=== PATIENT | female | born 1960 | race Caucasian/White ===

== ENCOUNTER 2018-06-01 09:54 | Emergency (ER) | payer BC ==
--- NOTE | 2018-06-01 10:18 | PDOC ---
History of Present Illness - General Chief Complaint: Urinary Problem Stated Complaint: UTI Time Seen by Provider: 06/01/18 10:05 - History of Present Illness Initial Comments: 06/01/18 10:30 58yo female with no pmhx presents for eval of dysuria and freq that started today. Pt denies f/c. C/o suprapubic discomfort. No cva or flank pain. No radiation of the pain. No n/v/d. No other complaints. States she has urinated 10x this am. Denies hematuria. No recent abx or travel. No other complaints. No cp/sob. No vaginal complaints. PMHx: denies PShx: c section Allergies: nkda Meds: mvi Past History - Past Medical History Allergies/Adverse Reactions: Allergies Allergy/AdvReac Type Severity Reaction Status Date / Time No Known Allergies Allergy Verified 06/01/18 09:57 Home Medications: Ambulatory Orders Cephalexin Monohydrate [Keflex -] 500 mg PO BID #10 capsule 06/01/18 Phenazopyridine HCl [Pyridium -] 100 mg PO TID PRN #6 tablet 06/01/18 Asthma: No HTN: No Hypercholesterolemia: No - Suicide/Smoking/Psychosocial Hx Smoking Status: No Smoking History: Never smoked Number of Cigarettes Smoked Daily: 0 Hx Alcohol Use: No Drug/Substance Use Hx: No Substance Use Type: None Review of Systems - Review of Systems Able to Perform ROS?: Yes Is the patient limited German proficient: No Constitutional: No: Chills, Fever HEENTM: Yes: Blurred Vision Respiratory: No: Cough, Shortness of Breath Cardiac (ROS): No: Chest Pain ABD/GI: No: Diarrhea, Nausea, Vomiting, Abdominal cramping : Yes: Burning, Dysuria. No: Hematuria Musculoskeletal: No: Back Pain Neurological: No: Headache All Other Systems: Reviewed and Negative *Physical Exam - Vital Signs 06/01/18 10:34 Selected Entries 06/01/18 09:57 Temperature 97.9 F Pulse Rate 77 Respiratory 15 Rate Blood Pressure 132/84 Blood Pressure 100 Mean O2 Sat by Pulse 100 Oximetry (%) Weight 68 kg - Physical Exam General Appearance: Yes: Nourished, Appropriately Dressed. No: Apparent Distress HEENT: positive: EOMI, Normal Voice Neck: positive: Supple Respiratory/Chest: positive: Lungs Clear, Normal Breath Sounds. negative: Respiratory Distress Cardiovascular: positive: Regular Rhythm, Regular Rate, S1, S2. negative: Edema Gastrointestinal/Abdominal: positive: Normal Bowel Sounds, Tender (suprapubic), Flat, Soft, Tenderness (suprapubic). negative: Guarding, Rebound Musculoskeletal: positive: Normal Inspection. negative: CVA Tenderness Extremity: positive: Normal Capillary Refill, Normal Inspection, Other (pedal pulses intact). negative: Calf Tenderness Integumentary: positive: Normal Color, Dry, Warm Neurologic: positive: Fully Oriented, Normal Mood/Affect, Motor Strength 5/5, Other (ambulatory in the ED with a steady gait) Medical Decision Making - Medical Decision Making 06/01/18 10:35 a/p: 58yo female with dysuria and frequency this AM -suspect UTI -will send ua and ucx -will give pyridium for spasm sensation -will most likely need abx - keflex -pending ua 06/01/18 11:15 pt with UTI on labs will give keflex, first dose in the ED and Rx for home will give Rx for pyridium 06/01/18 11:29 discussed lab results with the patient. Discussed all reasons to return to the ED and need for abx answered all questions. pt is stable for dc to home *DC/Admit/Observation/Transfer Diagnosis at time of Disposition: UTI (urinary tract infection) - Discharge Dispostion Disposition: HOME Condition at time of disposition: Stable Decision to Admit order: No - Prescriptions Prescriptions: Cephalexin Monohydrate [Keflex -] 500 mg PO BID #10 capsule Phenazopyridine HCl [Pyridium -] 100 mg PO TID PRN #6 tablet PRN Reason: Muscle Spasms - Referrals Referrals: Prabha Thompson [Primary Care Provider] - - Patient Instructions Printed Discharge Instructions: DI for Urinary Tract Infection (UTI) Additional Instructions: Please take all medications as prescribed. Please make a follow up appointment with your PMD in 2-3 days. Please return to the ED with any further concerns or complaints. If you develop a fever please return to the ED immediately. - Post Discharge Activity
[2018-06-01 10:20] VITALS: BP 132/84; PULSE 77; TEMP 97.9; BMI 24.2
[2018-06-01] MEDS ORDERED: PHENAZOPYRIDINE HCL 100 MG TABLET (FP) PO ONE (10:30)
[2018-06-01] MEDS ORDERED: PHENAZOPYRIDINE HCL 100 MG TABLET (FP) ONE (10:54)
[2018-06-01 11:09] LABS: URINE APPEARANCE Clear; URINE BILIRUBIN Negative (NEGATIVE); URINE COLOR Yellow; URINE GLUCOSE (UA) Negative (NEGATIVE); URINE KETONE Negative (NEGATIVE); URINE LEUK ESTERASE 2+ (NEGATIVE); URINE NITRITE Negative (NEGATIVE); URINE PROTEIN Negative (NEGATIVE); URINE UROBILINOGEN 0.2 (0.2-1.0)
[2018-06-01] MEDS ORDERED: CEPHALEXIN MONOHYDRATE 500 MG CAPSULE (UD) PO ONE (11:14)
[2018-06-01] MEDS ORDERED: CEPHALEXIN MONOHYDRATE 500 MG CAPSULE (UD) ONE (11:32)
[2018-06-01 11:46] LABS: EPI CELLS FEW /HPF
[2018-06-01 11:47] LABS: URINE BACTERIA FEW /hpf (NEGATIVE)
== END 2018-06-01 11:43 | disposition home or self-care (01) ==
LOC: SUPCPDRO 09:54 → FER 09:54
DX: N39.0 Urinary tract infection, site not specified (principal)
CPT/HCPCS: 81003; 81015; 87086; 99282-25

== ENCOUNTER 2019-01-04 07:57 | Emergency (ER) | payer BC ==
--- NOTE | 2019-01-04 08:07 | PDOC ---
History of Present Illness - General Chief Complaint: Urinary Problem Stated Complaint: "I THINK I HAVE UTI" Time Seen by Provider: 01/04/19 07:59 History Source: Patient Exam Limitations: No Limitations - History of Present Illness Initial Comments: 01/04/19 08:04 58 year old female c/ hx of UTIs presents with dysuria. Pt reports that symptoms are similar to her previous incident in May 2018. Denies fevers, chills. Started overnight. Stated that she noted the symptoms and suprapubic discomfort. Otherwise, denies other symptoms. Past History - Past Medical History Allergies/Adverse Reactions: Allergies Allergy/AdvReac Type Severity Reaction Status Date / Time No Known Allergies Allergy Verified 01/04/19 07:58 Home Medications: Ambulatory Orders Cephalexin Monohydrate [Keflex -] 500 mg PO BID #10 capsule 06/01/18 Phenazopyridine HCl [Pyridium -] 100 mg PO TID PRN #6 tablet 06/01/18 Cephalexin Monohydrate [Keflex -] 500 mg PO BID #10 capsule 01/04/19 Phenazopyridine HCl [Pyridium -] 100 mg PO TID PRN #6 tablet 01/04/19 Asthma: No COPD: No Disorders: Yes (UTI) HTN: No Hypercholesterolemia: No - Suicide/Smoking/Psychosocial Hx Smoking Status: No Smoking History: Never smoked Number of Cigarettes Smoked Daily: 0 Hx Alcohol Use: No Drug/Substance Use Hx: No Substance Use Type: None Review of Systems - Review of Systems Able to Perform ROS?: Yes Comments:: 01/04/19 08:04 GENERAL/CONSTITUTIONAL: [No fever or chills. No weakness. No weight change.] HEAD, EYES, EARS, NOSE AND THROAT: [No change in vision. No ear pain or discharge. No sore throat.] CARDIOVASCULAR: [No chest pain or shortness of breath.] RESPIRATORY: [No cough, wheezing, or hemoptysis.] GASTROINTESTINAL: [No nausea, vomiting, diarrhea or constipation. No rectal bleeding.] GENITOURINARY: [No frequency, or change in urination.] + dysuria MUSCULOSKELETAL: [No joint or muscle swelling or pain. No neck or back pain.] SKIN AND BREASTS: [No rash or easy bruising.] NEUROLOGIC: [No headache, vertigo, loss of consciousness, or loss of sensation.] PSYCHIATRIC: [No depression or anxiety.] ENDOCRINE: [No increased thirst. No abnormal weight change.] HEMATOLOGIC/LYMPHATIC: [No anemia, easy bleeding, or history of blood clots.] ALLERGIC/IMMUNOLOGIC: [No hives or skin allergy. No latex allergy.] *Physical Exam - Physical Exam Comments: 01/04/19 08:06 GENERAL: Awake, alert, and fully oriented, in no acute distress HEAD: No signs of trauma EYES: EOMI, sclera anicteric, conjunctiva clear ENT: Auricles normal inspection, hearing grossly normal, nares patent, Moist mucosa NECK: Normal ROM, supple, EXTREMITIES: Normal range of motion, no edema. No clubbing or cyanosis. No cords, erythema, or tenderness NEUROLOGICAL: Cranial nerves II through XII grossly intact. Normal speech, normal gait SKIN: Warm, Dry, normal turgor, no rashes or lesions noted. Medical Decision Making - Medical Decision Making 01/04/19 08:06 Vital Signs Temp Pulse Resp BP Pulse Ox 98 F 72 18 147/96 98 01/04/19 07:58 01/04/19 07:58 01/04/19 07:58 01/04/19 07:58 01/04/19 07:58 I will treat this patient as a urinary tract infection. Given improvement of symptoms utilizing cephalexin and Pyridium and her previous visit, we'll utilize his same medications. Obtain urine culture and have patient follow-up primary care physician. I discussed the physical exam findings, ancillary test results and final diagnoses with the patient. I answered all of the patient's questions. The patient was satisfied with the care received and felt comfortable with the discharge plan and treatment plan. The patient will call their primary care physician within 24 hours to arrange follow-up and will return to the Emergency Department with any new, persistant or worsening symptoms. *DC/Admit/Observation/Transfer Diagnosis at time of Disposition: UTI (urinary tract infection) Qualifiers: Urinary tract infection type: site unspecified Hematuria presence: without hematuria Qualified Code(s): N39.0 - Urinary tract infection, site not specified - Discharge Dispostion Condition at time of disposition: Stable Decision to Admit order: No - Prescriptions Prescriptions: Cephalexin Monohydrate [Keflex -] 500 mg PO BID #10 capsule Phenazopyridine HCl [Pyridium -] 100 mg PO TID PRN #6 tablet PRN Reason: UTI - Referrals - Patient Instructions Printed Discharge Instructions: DI for Urinary Tract Infection (UTI) Additional Instructions: Please take the antibiotics (500 mg keflex every 12 hours for 5 days). Please complete the course of medications. For pain relief, you may take 650 mg tylenol every 4 hours and/or 600 mg ibuprofen every 6 hours as needed. Drink plenty of fluids and rest. You may also take pyridium 100 mg every 8 hours (for a total max of 6 doses). Please follow up with your doctor. - Post Discharge Activity
[2019-01-04 08:12] VITALS: BP 147/96; PULSE 72; TEMP 98; BMI 24.2
[2019-01-04] MEDS ORDERED: NAPROXEN 500 MG TABLET (FP) PO ONE (08:12)
[2019-01-04] MEDS ORDERED: CEPHALEXIN 250 MG/5 ML ORAL SUSPENSION PO ONE (08:12)
[2019-01-04] MEDS ORDERED: CEPHALEXIN MONOHYDRATE 500 MG CAPSULE (UD) PO ONE (08:14)
[2019-01-04] MEDS ORDERED: CEPHALEXIN MONOHYDRATE 500 MG CAPSULE (UD) ONE (08:15)
[2019-01-04] MEDS ORDERED: NAPROXEN 500 MG TABLET (FP) ONE (08:15)
[2019-01-04 08:46] LABS: EPITHELIAL CELLS FEW /hpf
== END 2019-01-04 08:28 | disposition home or self-care (01) ==
LOC: FER 07:57
DX: N39.0 Urinary tract infection, site not specified (principal)
CPT/HCPCS: 81003; 81015; 87086; 87186; 99282-25

== ENCOUNTER 2020-02-01 08:36 | Emergency (ER) | payer BC ==
[2020-02-01 08:43] VITALS: BP 140/50; PULSE 76; TEMP 98.3; BMI 23.5
--- NOTE | 2020-02-01 08:55 | PDOC ---
History of Present Illness - General Chief Complaint: Rash Stated Complaint: RASH Time Seen by Provider: 02/01/20 08:38 - History of Present Illness Initial Comments: 02/01/20 09:06 59-year-old female with no significant past medical history presents the emergency department with rash. Patient reports she was cutting her hedges this weekend and noticed a rash on her right forearm. She reports some areas of the rash developed blisters and since then the rash has spread to her left forearm her chest, the back of her neck, and the back of her knees. She reports the rash is very itchy. She took Benadryl last night to assist with the itching with minimal relief. She presents today due to progression of the rash. She denies any fevers or chills. She has no history of rash. She is not sure if she had any poison taty in her yard. She is otherwise been in her usual state of good health, denies headache, dizziness, focal weakness or numbness, chest pain, shortness of breath, abdominal pain, urinary symptoms, lower extremity edema. Denies any recent travel. Denies recent new medications, detergents. Past History - Medical History Allergies/Adverse Reactions: Allergies Allergy/AdvReac Type Severity Reaction Status Date / Time No Known Allergies Allergy Verified 01/04/19 07:58 Home Medications: Ambulatory Orders Cephalexin Monohydrate [Keflex -] 500 mg PO BID #10 capsule 06/01/18 Phenazopyridine HCl [Pyridium -] 100 mg PO TID PRN #6 tablet 06/01/18 Cephalexin Monohydrate [Keflex -] 500 mg PO BID #10 capsule 01/04/19 Phenazopyridine HCl [Pyridium -] 100 mg PO TID PRN #6 tablet 01/04/19 Triamcinolone 0.5% Cream [Aristocort 0.5% Cream -] 1 applic TP BID 14 Days #1 tube 02/01/20 Triamcinolone 0.5% Cream [Aristocort 0.5% Cream -] 1 applic TP BID 14 Days #1 tube 02/01/20 Asthma: No COPD: No Disorders: Yes (UTI) HTN: No Hypercholesterolemia: No - Psycho-Social/Smoking History Smoking Status: No Smoking History: Never smoked Number of Cigarettes Smoked Daily: 0 - Substance Abuse Hx (Audit-C & DAST Scrn) How often the patient has a drink containing alcohol: Never Score: In Men: 4 or > Positive; In Women: 3 or > Positive: 0 Screen Result (Pos requires Nsg. Audit-10AR): Negative In the last yr the pt used illegal drug/Rx for NonMed reason: No Score: Yes response is considered Positive: 0 Screen Result (Positive result requires Nsg. DAST-10): Negative Review of Systems - Review of Systems Comments:: 02/01/20 09:08 GENERAL/CONSTITUTIONAL: No fever or chills. No weakness. HEAD, EYES, EARS, NOSE AND THROAT: No change in vision. No ear pain or discharge. No sore throat. GASTROINTESTINAL: No nausea, vomiting, diarrhea or constipation. GENITOURINARY: No dysuria, frequency, or change in urination. CARDIOVASCULAR: No chest pain or shortness of breath. RESPIRATORY: No cough, wheezing, or hemoptysis. MUSCULOSKELETAL: No joint or muscle swelling or pain. No neck or back pain. SKIN: +rash NEUROLOGIC: No headache, vertigo, loss of consciousness, or change in strength/sensation. ENDOCRINE: No increased thirst. No abnormal weight change. HEMATOLOGIC/LYMPHATIC: No anemia, easy bleeding, or history of blood clots. ALLERGIC/IMMUNOLOGIC: No hives or skin allergy. *Physical Exam - Vital Signs Last Vital Signs Temp Pulse Resp BP Pulse Ox 98.3 F 76 18 140/50 L 98 02/01/20 08:39 02/01/20 08:39 02/01/20 08:39 02/01/20 08:39 02/01/20 08:39 - Physical Exam 02/01/20 09:09 GENERAL: Awake, alert, and fully oriented, in no acute distress, non toxic EYES: PERRLA, EOMI, sclera anicteric, conjunctiva clear ENT: Oropharynx clear without exudates. Moist mucosa NECK: Normal ROM, supple, no lymphadenopathy, JVD, or masses LUNGS: Breath sounds equal, clear to auscultation bilaterally. No wheezes, and no crackles HEART: Regular rate and rhythm, normal S1 and S2, no murmurs, rubs or gallops ABDOMEN: Soft, nontender, normoactive bowel sounds. No guarding, no rebound. No masses EXTREMITIES: Normal range of motion, no edema. NEUROLOGICAL: Normal speech, cranial nerves intact, equal strength and sensation b/l SKIN: b/l forearm, anterior chest, posterior neck, b/l posterior knees: multiple erythematous vesiculopapular legions coalescing into plaques, some vesicles unroofed and excoriated. Medical Decision Making - Medical Decision Making 02/01/20 09:14 59yo F, no PMH, well appearing presents to the ED with rash Non toxic appearing, no systemic sxs Rash most consistent with poison taty contact dermatitis Plan for high potency steroid cream BID, will hold off on systemic steroids for now Pt instructed to return to ED if no improvement in 48hrs, at that point a 2 week course of prednisone may be indicated Pt clinically stable for DC home I discussed the physical exam findings, ancillary test results and final diagnoses with the patient. I answered all of the patient's questions. The patient was satisfied with the care received and felt comfortable with the d ischarge plan and treatment plan. The patient will call their primary care physician within 24 hours to arrange follow-up and will return to the Emergency Department with any new, persistent or worsening symptoms. Discharge - Discharge Information Problems reviewed: Yes Clinical Impression/Diagnosis: Poison taty dermatitis, Localized pruritus Condition: Stable Disposition: HOME - Admission No - Additional Discharge Information Prescriptions: Triamcinolone 0.5% Cream [Aristocort 0.5% Cream -] 1 applic TP BID 14 Days #1 tube Triamcinolone 0.5% Cream [Aristocort 0.5% Cream -] 1 applic TP BID 14 Days #1 tube - Follow up/Referral - Patient Discharge Instructions Patient Printed Discharge Instructions: DI for Poison Taty Allergy Additional Instructions: Apply the cream to affected areas twice a day. Follow up here in 48 hours if the rash does not improve as we may need to start you on a steroid pill Return to the emergency department if you have any new, worsening, or concerning symptoms We hope you feel better soon! Dr. Hernandez - Post Discharge Activity
== END 2020-02-01 09:10 | disposition home or self-care (01) ==
LOC: FER 08:36
DX: L23.7 Allergic contact dermatitis due to plants, except food (principal)
CPT/HCPCS: 99282-25

== ENCOUNTER 2021-03-23 12:16 | Emergency (ER) | payer BC ==
[2021-03-23 12:20] VITALS: BP 132/80; PULSE 65; TEMP 98; BMI 23.1
[2021-03-23] MEDS ORDERED: AMOX TR/POT CLAV 875MG/125MG TABLETS (FP) PO ONE (12:23)
[2021-03-23] MEDS ORDERED: DIPHTH,PERTUSS(ACELL),TET 0.5 ML DISP.SYRIN IM ONE (12:23)
[2021-03-23] MEDS ORDERED: AMOX TR/POT CLAV 875MG/125MG TABLETS (FP) ONE (12:29)
== END 2021-03-23 12:43 | disposition home or self-care (01) ==
LOC: FER 12:16
PROC: 3E0234Z Introduction of Serum, Toxoid and Vaccine into Muscle, Percutaneous Approach (ICD-10-PCS; principal; 2021-03-23)
DX: S61.451A Open bite of right hand, initial encounter (principal); W55.01XA Bitten by cat, initial encounter; Y92.9 Unspecified place or not applicable
CPT/HCPCS: 99283-25

== ENCOUNTER 2022-02-14 12:03 | Emergency (ER) | payer BC ==
[2022-02-14 12:12] VITALS: BP 127/78; PULSE 83; RESP 18; TEMP 99.2; BMI 23.5
== END 2022-02-14 12:30 | disposition home or self-care (01) ==
LOC: JER 12:03
DX: U07.1 COVID-19 (principal); R05.1 Acute cough; R50.81 Fever presenting with conditions classified elsewhere
CPT/HCPCS: 99281-25

== ENCOUNTER 2024-02-05 08:45 | Emergency (ER) | payer BC ==
[2024-02-05 09:03] VITALS: BP 137/86; PULSE 64; RESP 18; TEMP 97.7; BMI 24.2
== END 2024-02-05 09:15 | disposition home or self-care (01) ==
LOC: FER 08:45
DX: R21 Rash and other nonspecific skin eruption (principal); L23.7 Allergic contact dermatitis due to plants, except food
CPT/HCPCS: 99283-25